=== PATIENT | male | born 1985 | race Caucasian/White ===

== ENCOUNTER 2017-01-10 18:58 | Emergency (ER) | payer SELFPAY ==
[2017-01-10 19:07] VITALS: BP 133/76
--- OUTSIDE RECORDS SUMMARY | 2017-01-10 19:56 | XMS REPORT | Summary of Care ---
:1985 Author Organization [facility] Care Team Providers Name Role Phone Christopher Ramirez Primary Care Physician Encounter 12/24/16 - 12/24/16 [facility] [address] [place] [address] Rich Eubanks , Dir. Lab: [phone] [place] [address]- Discharge Disposition: Home Attending Physician: Camden Ventura DO Admitting Physician: Christopher Ramirez Referring Physician: Self, Referral Vital Signs Most recent to oldest [Reference Range]: 1 2 Respiratory Rate [12-30 brpm] 18 brpm 18 brpm (12/24/16 4:23 PM) (12/24/16 4:14 PM) Blood Pressure [(reference range 126/76mm hg 126/76mm hg unavailable)/61-99 mm hg] (12/24/16 4:23 PM) (12/24/16 4:14 PM) Temperature F [97.7-99.9 degF] 98.1 degF 98.1 degF (12/24/16 4:23 PM) (12/24/16 4:14 PM) Height 185.4 cm 185.4 cm (12/24/16 4:23 PM) (12/24/16 4:14 PM) Weight 79.545 kg 79.545 kg (12/24/16 4:23 PM) (12/24/16 4:14 PM) Problem List Condition Effective Dates Status Health Status Informant Abdominal pain(Confirmed) Active Smoker(Confirmed)1 Active 1Problem added as a result of documented Tobacco Use. Allergies, Adverse Reactions, Alerts No Known Allergies Medications No data available for this section Results No data available for this section Immunizations No data available for this section Procedures No data available for this section Social History Social History Type Response Alcohol Never Substance Abuse Never Smoking Status Current every day smoker Assessment and Plan Extracted from: Title:Medical problem - minor Author:Camden Ventura DO Date:12/24/16 Impression and Plan Diagnosis medical screening exam. Plan Condition: Stable. Disposition: Discharged: to home. Counseled: Patient, Regarding diagnosis, Regarding diagnostic results, Regarding prescription, Patient indicated understanding of instructions.
--- OUTSIDE RECORDS SUMMARY | 2017-01-10 19:57 | XMS REPORT | Summary of Care ---
:1985 Author Organization [facility] Care Team Providers Name Role Phone Christopher Ramirez Primary Care Physician Encounter 12/24/16 - 12/24/16 [facility] [address] [place] [address] Rich Eubanks , Dir. Lab: [phone] [place] [address]- Discharge Disposition: Home Attending Physician: Camden Ventura DO Admitting Physician: Christopher Ramirez Referring Physician: Self, Referral Vital Signs Most recent to [facility] [Reference Range]: 1 2 Respiratory Rate [12-30 brpm] 16 brpm 16 brpm (12/24/16 8:02 PM) (12/24/16 7:57 PM) Blood Pressure [(reference range 148/90mm hg 148/90mm hg unavailable)/61-99 mm hg] (12/24/16 8:02 PM) (12/24/16 7:57 PM) Temperature F [97.7-99.9 degF] 97.4 degF 97.4 degF *LOW* *LOW* (12/24/16 8:02 PM) (12/24/16 7:57 PM) Height 185.4 cm 185.4 cm (12/24/16 8:02 PM) (12/24/16 7:57 PM) Weight 79.545 kg 79.545 kg (12/24/16 8:02 PM) (12/24/16 7:57 PM) Problem List Condition Effective Dates Status Health Status Informant Abdominal pain(Confirmed) Active Smoker(Confirmed)1 Active 1Problem added as a result of documented Tobacco Use. Allergies, Adverse Reactions, Alerts No Known Allergies Medications No Known Medications Results BASIC CHEMISTRIES Most recent to [facility] [Reference Range]: 1 Glucose POC [70-105 mg/dL] 82 mg/dL *N* (12/24/16 8:08 PM) Immunizations No data available for this section Procedures No data available for this section Social History Social History Type Response Alcohol Never Substance Abuse Never Smoking Status Current every day smoker Assessment and Plan Extracted from: Title:Medical screening exam Author:Rei Marcos PA-C Date:12/24/16 Impression and Plan Diagnosis Medical screening exam (PNED [id number], Reason For Visit, Emergency medicine, Medical) Plan Condition: Stable. Disposition: Discharged: time 12/24/2016 20:13:00. Patient was given the following educational materials: Medical Screening Exam. Follow up with: Christopher Tomas as needed. Counseled: Patient, Regarding diagnosis, Regarding diagnostic results, Regarding treatment plan, Patient indicated understanding of instructions. Notes: By signing my name below, Miguel Mcgee, attest that this documentation has been prepared under the direction and in the presence of Rei Marcos PA-C. Rei Mcgee, personally performed the services described in this documentation. All medical record entries made by the scribe were at my direction and in my presence. I have reviewed the chart and agree that the record reflects my personal performance and is accurate and complete..
== END 2017-01-10 19:40 | disposition left against medical advice (07) ==
LOC: ER 18:58
DX: Z53.21 Procedure and treatment not carried out due to patient leaving prior to being seen by health care provider (principal)